=== PATIENT | female | born 1990 | race Caucasian/White ===

== ENCOUNTER 2016-04-22 14:48 | Emergency (ER) | payer SELFPAY ==
[~2016-04-22] VITALS: Ht 162.6 cm; Wt 72.6 kg
[~2016-04-22 14:48] MED LIST: ACYC200C PO; ALBUTERAL INHALER; AMOX500C2 PO; AMOX500T2 PO; CEPH-507 PO; Ibuprofen PO; METR70GE8 VG; NAPR-243 PO; NITR-65 PO; NITR100C3 PO; ONDA4TAB8 PO; ONDAN4ODT SL; PREN-115 PO; RT-ALBUINH IH; SERT25TA PO; TRAM50TA2 PO; [UNRECOGNIZED DRUG - CODE] PO
--- OUTSIDE RECORDS SUMMARY | 2016-04-22 14:54 | XMS REPORT | Continuity of Care Document ---
Author Author [facility] Organization [facility] Address Unknown Phone Unavailable Care Team Providers Care Housing Project Manager Name Role Phone NO, LOCAL PHYSICIAN PCP Unavailable Insurance Providers Payer Name Policy Number Subscriber Name Relationship Self Pay Amanda Gomez 19 Self / Same As Patient Advance Directives Directive Response Recorded Date/Time Advance Directives No 09/18/14 6:42pm Health Care Power of Public Safety Dispatcher No 09/18/14 6:42pm Organ Donor No 09/18/14 6:42pm Resuscitation Status Full Code 09/18/14 6:42pm Problems Medical Problems Problem Onset Date Status Diarrhea Unknown Active Nausea and vomiting Unknown Active test positive Unknown Active Urinary tract infection in Unknown Active Dental caries Unknown Active Depression Unknown Active Gardnerella Urinary Tract Infection Unknown Active Upper respiratory infection Unknown Active Nausea and vomiting Unknown Active bacteriuria Unknown Active Abrasion Unknown Active Herpes simplex Unknown Active Dental abscess Unknown Active Medications Medication Dose Route Sig Days/Qty Instructions Order Date Discontinued Date Status Vit #108/Iron/Fa 1 Each PO DAILY 02/24/13 09/18/14 Discontinued Nitrofurantoin Macrocrystals 1 Cap PO TWICE A DAY 7 Days Clcr <60 mL/ minute: Contraindicated 02/24/13 03/20/13 Discontinued Ondansetron HCl 4 Mg SL EVERY 4HRS PRN NAUSEA/VOMITING 20 Qty 02/24/13 03/20/13 Discontinued Amoxicillin 2 Each PO TWICE A DAY 10 Days 03/20/13 05/12/13 Discontinued Metronidazole 70 Gm VG DIRECTED 5 Days Sure one applicator full vaginally at night before bedtime 03/20/13 05/12/13 Discontinued Ondansetron 4 Mg PO 05/12/13 10/07/13 Discontinued Nitrofurantoin Macrocrystals 1 Each PO TWICE A DAY 20 Qty 05/12/13 Discontinued Sertraline HCl 25 Mg PO 10/07/13 09/18/14 Discontinued [Ibuprofen] 600 Mg PO EVERY 6 HOURS PRN PAIN 90 Qty 11/07/13 09/18/14 Discontinued [Albuteral Inhaler] NEEDED 09/18/14 Active Acyclovir 400 Mg PO THREE TIMES A DAY 60 Qty 09/18/14 Active Naproxen 1 Each PO BID PRN PRN PAIN 20 Qty 09/18/14 Active Amoxicillin Trihydrate 500 Mg PO FOUR TIMES DAILY 40 Qty 09/18/14 Active Social History Social History Problem Response Recorded Date/Time Alcohol Use Occasionally Uses 09/18/2014 6:42pm Recreational Drug Use No 09/18/2014 6:42pm Recent Foreign Travel No 11/04/2013 6:40pm Recent Infectious Disease Exposure No 11/04/2013 6:40pm Hospitalization with Isolation Denies 11/07/2013 3:30pm Sexually Transmitted Disease No 09/18/2014 6:42pm HIV/AIDS No 09/18/2014 6:42pm Smoking Status Current Everyday Smoker 09/18/2014 6:42pm Query Response Start Date Stop Date Smoking Status Current Everyday Smoker Hospital Discharge Instructions No hospital discharge instructions. Plan of Care No plan of care. Functional Status No functional status results. Allergies, Adverse Reactions, Alerts Allergen Type Severity Reaction Status Last Updated No Known Drug Allergies Active 02/24/13 Immunizations Name Given Type Hepatitis A No Historical Hepatitis B No Historical Tetanus Booster (TDap) Less than 5yrs Historical Vital Signs Acute Vital Signs Vital Response Date/Time Temperature (Fahrenheit) 97.8 degrees F (97.6 - 99.5) Temperature (Calculated Celsius) 36.42534 degrees C (36.4 - 37.5) Temperature Source Temporal Pulse Rate (adult) 70 bpm (60 - 90) Respiratory Rate 18 bpm (12 - 24) O2 Sat by Pulse Oximetry 98 % (88 - 100) Blood Pressure 116/80 mm Hg Blood Pressure Mean 98 mm Hg Pain Pain Intensity 4 Height (Feet) 5 feet Height (Inches) 5.00 inches Height (Calculated Centimeters) 165.321785 cm Weight (Pounds) 150 pounds Weight (Calculated Grams) 02858.627 gm Weight (Calculated Kilograms) 68.612142 kilograms Calculated BMI 21.09 Results No known relevant diagnostic tests, laboratory data and/or discharge summary. Procedures No known history of procedures. Encounters Encounter Location Date/Time Departed Emergency Room [facility] 09/18/14 6:24pm Recent Diagnosis
[2016-04-22] MEDS ORDERED: HYDR-3812 PO (15:39)
[2016-04-22] MEDS ORDERED: AMOX250C PO (15:39)
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
[2016-04-22] MEDS ORDERED: PRED5TAB PO (16:07)
[2016-04-22 16:11] VITALS: BP 114/59
== END 2016-04-22 16:11 | disposition home or self-care (01) ==
LOC: EDUNIT# 14:48 → ER 14:50
DX: K04.7 Periapical abscess without sinus (principal)
CPT/HCPCS: 99282

== ENCOUNTER 2016-05-18 17:33 | Emergency (ER) | payer SELFPAY ==
[~2016-05-18] VITALS: Ht 162.6 cm; Wt 77.1 kg
[~2016-05-18 17:33] MED LIST changes: +AMOX250C PO; +HYDR-3812 PO; +PRED5TAB PO
--- OUTSIDE RECORDS SUMMARY | 2016-05-18 17:38 | XMS REPORT | Continuity of Care Document ---
Author Author [facility] Organization [facility] Address Unknown Phone Unavailable Care Team Providers Care Home Visitor Home Base Head Start Name Role Phone NO, LOCAL PHYSICIAN PCP Unavailable Insurance Providers Payer Name Policy Number Subscriber Name Relationship Self Pay Amanda Gomez 19 Self / Same As Patient Advance Directives Directive Response Recorded Date/Time Advance Directives No 09/18/14 6:42pm Health Care Power of Casualty Claims Supervisor No 09/18/14 6:42pm Organ Donor No 09/18/14 [...] F (97.6 - 99.5) Temperature (Calculated Celsius) 36.07677 degrees C (36.4 - 37.5) Temperature Source Temporal Pulse Rate (adult) 70 bpm (60 - 90) Respiratory Rate 18 bpm (12 - 24) O2 Sat by Pulse Oximetry 98 % (88 - 100) Blood Pressure 116/80 mm Hg Blood Pressure Mean 98 mm Hg Pain Pain Intensity 4 Height (Feet) 5 feet Height (Inches) 5.00 inches Height (Calculated Centimeters) 165.611259 cm Weight (Pounds) 150 pounds Weight (Calculated Grams) 06066.627 gm Weight (Calculated Kilograms) 68.965411 kilograms Calculated BMI 21.09 Results No known relevant diagnostic tests, laboratory data and/or discharge summary. Procedures No known history of procedures. Encounters Encounter Location Date/Time Departed Emergency Room [facility] 09/18/14 6:24pm Recent Diagnosis
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
[2016-05-18] MEDS ORDERED: NS IV 1000 ML 1,000 ML IV SCH (18:00)
[2016-05-18] MEDS ORDERED: HYOSCYAMINE 0.125 MG (LEVSIN) TAB PO ONE (18:00)
[2016-05-18 18:18] LABS: BASOPHILS % (AUTO) 0 % (0-10); EOSINOPHILS # (AUTO) 0.1 10^3/uL (0.0-0.3); EOSINOPHILS % (AUTO) 1 % (0-10); LYMPHOCYTES # (AUTO) 0.9 X 10^3 (1.0-4.0); LYMPHOCYTES % (AUTO) 8 % (12-44); MEAN CORPUSCULAR HEMOGLOBIN 33 PG (25-34); MEAN CORPUSCULAR HGB CONC 34 G/DL (32-36); MEAN CORPUSCULAR VOLUME 95 FL (80-99); MEAN PLATELET VOLUME 11.5 FL (7.4-10.4); MONOCYTES # (AUTO) 0.5 X 10^3 (0.0-1.0); MONOCYTES % (AUTO) 4 % (0-12); NEUTROPHILS # (AUTO) 9.5 X 10^3 (1.8-7.8); NEUTROPHILS % (AUTO) 87 % (42-75); PLATELET COUNT 148 10^3/uL (130-400); RED BLOOD COUNT 4.89 10^6/uL (4.35-5.85); RED CELL DISTRIBUTION WIDTH 12.8 % (10.0-14.5)
[2016-05-18 18:34] LABS: BAND NEUTROPHILS 5 %; BASOPHILS % (MANUAL) 0 %; EOSINOPHILS % (MANUAL) 1 %; LYMPHOCYTES % (MANUAL) 7 %; NEUTROPHILS % (MANUAL) 82 %
[2016-05-18 18:42] LABS: ALANINE AMINOTRANSFERASE 30 U/L (0-55); ALBUMIN 4.5 G/DL (3.2-4.5); ANION GAP 9 MMOL/L (5-14); ASPARTATE AMINO TRANSFERASE 26 U/L (5-34); BILIRUBIN,TOTAL 0.7 MG/DL (0.1-1.0); BLOOD UREA NITROGEN 10 MG/DL (7-18); BUN/CREATININE RATIO 13; CALCIUM 9.4 MG/DL (8.5-10.1); CARBON DIOXIDE 23 MMOL/L (21-32); CHLORIDE 106 MMOL/L (98-107); CREATININE SERUM 0.76 MG/DL (0.60-1.30); GFR ESTIMATED > 60; GLUCOSE 108 MG/DL (70-105); LIPASE 14 U/L (8-78); POTASSIUM 4.5 MMOL/L (3.6-5.0); SODIUM 138 MMOL/L (135-145); TOTAL PROTEIN 7.6 G/DL (6.4-8.2)
[2016-05-18] MEDS ORDERED: ONDA8TAB9 PO (19:21)
[2016-05-18] MEDS ORDERED: HYOS0.1283 SL (19:21)
[2016-05-18 19:52] LABS: BILIRUBIN,URINE NEGATIVE (NEGATIVE); KETONES,URINE NEGATIVE (NEGATIVE); LEUKOCYTE ESTERASE ,URINE 2+ (NEGATIVE); NITRITE,URINE NEGATIVE (NEGATIVE); PH,URINE 5 (5-9); PROTEIN,URINE 2+ (NEGATIVE); SQUAMOUS EPITHELIAL CELL,UR 25-50 /HPF; UROBILINOGEN,URINE NORMAL (NORMAL)
[2016-05-18] MEDS ORDERED: SULF1TAB35 PO (19:56)
[2016-05-18 20:10] VITALS: BP 135/84
== END 2016-05-18 20:10 | disposition home or self-care (01) ==
LOC: EDUNIT# 17:33 → ER 17:35
DX: R11.2 Nausea with vomiting, unspecified (principal); R19.7 Diarrhea, unspecified; N39.0 Urinary tract infection, site not specified
CPT/HCPCS: 36415; 80053; 81000; 83690; 84703; 85007; 85027; 87088; 96360

== ENCOUNTER 2016-08-20 19:07 | Emergency (ER) | payer SELFPAY ==
[~2016-08-20] VITALS: Ht 162.6 cm; Wt 72.6 kg
[~2016-08-20 19:07] MED LIST changes: +HYOS0.1283 SL; +ONDA8TAB9 PO; +SULF1TAB35 PO
[2016-08-20] MEDS ORDERED: LACTATED RINGERS 1,000 ML IV ONE (19:59)
[2016-08-20 20:21] LABS: BASOPHILS # (AUTO) 0.1 10^3/uL (0.0-0.1); BASOPHILS % (AUTO) 1 % (0-10); EOSINOPHILS # (AUTO) 0.1 10^3/uL (0.0-0.3); EOSINOPHILS % (AUTO) 1 % (0-10); LYMPHOCYTES # (AUTO) 2.1 X 10^3 (1.0-4.0); LYMPHOCYTES % (AUTO) 21 % (12-44); MEAN CORPUSCULAR HEMOGLOBIN 33 PG (25-34); MEAN CORPUSCULAR HGB CONC 35 G/DL (32-36); MEAN CORPUSCULAR VOLUME 94 FL (80-99); MEAN PLATELET VOLUME 11.3 FL (7.4-10.4); MONOCYTES # (AUTO) 0.8 X 10^3 (0.0-1.0); MONOCYTES % (AUTO) 8 % (0-12); NEUTROPHILS # (AUTO) 7.2 X 10^3 (1.8-7.8); NEUTROPHILS % (AUTO) 70 % (42-75); PLATELET COUNT 180 10^3/uL (130-400); RED BLOOD COUNT 4.46 10^6/uL (4.35-5.85); RED CELL DISTRIBUTION WIDTH 13.3 % (10.0-14.5); WHITE BLOOD COUNT 10.3 10^3/uL (4.3-11.0)
[2016-08-20 20:35] LABS: ALCOHOL 106 MG/DL (<10); ANION GAP 12 MMOL/L (5-14); BLOOD UREA NITROGEN 5 MG/DL (7-18); BUN/CREATININE RATIO 7; CALCIUM 9.3 MG/DL (8.5-10.1); CARBON DIOXIDE 22 MMOL/L (21-32); CHLORIDE 105 MMOL/L (98-107); CREATININE SERUM 0.69 MG/DL (0.60-1.30); GFR ESTIMATED > 60; GLUCOSE 89 MG/DL (70-105); POTASSIUM 3.4 MMOL/L (3.6-5.0); SODIUM 139 MMOL/L (135-145)
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
[2016-08-20 20:55] LABS: BILIRUBIN,URINE NEGATIVE (NEGATIVE); KETONES,URINE NEGATIVE (NEGATIVE); LEUKOCYTE ESTERASE ,URINE NEGATIVE (NEGATIVE); NITRITE,URINE NEGATIVE (NEGATIVE); PH,URINE 7 (5-9); PROTEIN,URINE NEGATIVE (NEGATIVE); UROBILINOGEN,URINE NORMAL (NORMAL)
[2016-08-20 21:04] LABS: WBC,URINE 0-2 /HPF
[2016-08-20] MEDS ORDERED: ONDA4TAB8 PO (21:15)
[2016-08-20 22:08] VITALS: BP 126/84
== END 2016-08-20 22:08 | disposition home or self-care (01) ==
LOC: EDUNIT# 19:07 → ER 19:10
DX: O03.9 Complete or unspecified spontaneous abortion without complication (principal); F17.290 Nicotine dependence, other tobacco product, uncomplicated; Z3A.09 9 weeks gestation of pregnancy
CPT/HCPCS: 36415; 80048; 80306; 80320; 81000; 84702; 84703; 85025

== ENCOUNTER 2016-10-08 15:34 | Emergency (ER) | payer MEDICAID ==
[~2016-10-08] VITALS: Ht 160 cm; Wt 72.6 kg
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
[2016-10-08 17:44] LABS: BASOPHILS % (AUTO) 0 % (0-10); EOSINOPHILS # (AUTO) 0.1 10^3/uL (0.0-0.3); EOSINOPHILS % (AUTO) 1 % (0-10); LYMPHOCYTES # (AUTO) 2.1 X 10^3 (1.0-4.0); LYMPHOCYTES % (AUTO) 22 % (12-44); MEAN CORPUSCULAR HEMOGLOBIN 33 PG (25-34); MEAN CORPUSCULAR HGB CONC 34 G/DL (32-36); MEAN CORPUSCULAR VOLUME 96 FL (80-99); MEAN PLATELET VOLUME 11.4 FL (7.4-10.4); MONOCYTES # (AUTO) 0.7 X 10^3 (0.0-1.0); MONOCYTES % (AUTO) 7 % (0-12); NEUTROPHILS # (AUTO) 6.7 X 10^3 (1.8-7.8); NEUTROPHILS % (AUTO) 70 % (42-75); PLATELET COUNT 194 10^3/uL (130-400); RED BLOOD COUNT 4.87 10^6/uL (4.35-5.85); RED CELL DISTRIBUTION WIDTH 13.6 % (10.0-14.5); WHITE BLOOD COUNT 9.6 10^3/uL (4.3-11.0)
--- NOTE | 2016-10-08 18:53 | Diagnostic Imaging Report ---
INDICATION: with bleeding. FINDINGS: There does appear to be an intrauterine gestational sac measuring 3 cm which would be consistent with 8 week 3 day gestation. There is no evidence of pole or yolk sac, however. The right ovary is visualized and appears normal with a few follicular cysts. The left ovary is not demonstrated. No adnexal masses are seen. There is no free fluid. IMPRESSION: Findings are consistent with blighted ovum as described. No evidence of pole or yolk sac demonstrated within the gestational sac in the uterine cavity. Dictated by: Dictated on workstation # [id number]
[2016-10-08 19:03] VITALS: BP 135/75
== END 2016-10-08 19:03 | disposition home or self-care (01) ==
LOC: EDUNIT# 15:34 → ER 15:36
DX: O02.0 Blighted ovum and nonhydatidiform mole (principal); O99.341 Other mental disorders complicating pregnancy, first trimester; F31.9 Bipolar disorder, unspecified; O99.89 Other specified diseases and conditions complicating pregnancy, childbirth and the puerperium; M79.5 Residual foreign body in soft tissue; O99.511 Diseases of the respiratory system complicating pregnancy, first trimester; J45.909 Unspecified asthma, uncomplicated; O99.321 Drug use complicating pregnancy, first trimester; F12.90 Cannabis use, unspecified, uncomplicated; O99.331 Smoking (tobacco) complicating pregnancy, first trimester; F17.290 Nicotine dependence, other tobacco product, uncomplicated; Z87.39 Personal history of other diseases of the musculoskeletal system and connective tissue; Z98.890 Other specified postprocedural states; Z3A.00 Weeks of gestation of pregnancy not specified
CPT/HCPCS: 36415; 76801; 76817; 84702; 85025; 99282

== ENCOUNTER 2016-11-24 20:14 | Emergency (ER) | payer MEDICAID, OTHER ==
[~2016-11-24] VITALS: Ht 160 cm; Wt 72.6 kg
[2016-11-24] MEDS ORDERED: AMOXICILLIN 500 MG (POLYMOX) CAP PO STA (20:27)
[2016-11-24] MEDS ORDERED: NAPROXEN 250 MG (NAPROSYN) TABLET PO ONE (20:30)
[2016-11-24] MEDS ORDERED: HYDROcodone/APAP 5 MG/325 MG (LORTAB) TAB PO ONE (20:30)
--- NOTE | 2016-11-24 20:31 | ED EENT ---
History of Present Illness General Chief Complaint: Dental Problems/Pain Stated Complaint: TOOTH PAIN Source: patient Exam Limitations: no limitations History of Present Illness Time seen by provider: 20:29 Initial Comments To ER with left upper and lower dental pain for 2 days. States that she took an "fish antibiotic" earlier today. She does not have a dentist. Timing/Duration: abrupt Severity: moderate Location: dental Associated Symptoms: denies symptoms Allergies and Home Medications Allergies Coded Allergies: No Known Drug Allergies (Unverified , 02/24/13) Home Medications Hyoscyamine Sulfate 0.125 Mg Tab.subl, 0.125 MG SL Q4H PRN for PAIN, #10 Prescribed by: HASMUKH DUKE on 05/18/161920 Ondansetron 8 Mg Tab.rapdis, 8 MG PO Q6H PRN for NAUSEA/VOMITING, #10 Prescribed by: HASMUKH DUKE on 05/18/161920 Ondansetron 4 Mg Tab.rapdis, 4 MG PO Q6H PRN for NAUSEA/VOMITING-1ST LINE, #20 Ref 0 Prescribed by: TOPHER CLAIRE on 08/20/162114 Sulfamethoxazole/Trimethoprim 1 Each Tablet, 1 EACH PO BID, #10 Prescribed by: HASMUKH DUKE on 05/18/161955 Review of Systems Constitutional: see HPI Eyes: No Symptoms Reported Ears: No Symptoms Reported Nose: no symptoms reported Mouth: see HPI Throat: no symptoms reported Respiratory: no symptoms reported Past Wrpjhto-Lqnorf-Ugkvrd Hx Patient Social History Alcohol Beverage of Choice: Whiskey, Other Drug of Choice: MARIJUANA Type Used: Cigars 2nd Hand Smoke Exposure: Yes Recent Foreign Travel: No Contact w/Someone Who Travel: No Recent Hopitalizations: No Immunizations Up To Date Tetanus Booster (TDap): Unknown Seasonal Allergies Seasonal Allergies: No Surgeries History of Surgeries: Yes (R-EYE SURGERY, RECONSTRUCTIVE) Surgeries: Eye Surgery Respiratory History of Respiratory Disorde: Yes (USED INHALER 3 MONTHS AGO) Respiratory Disorders: Asthma Cardiovascular History of Cardiac Disorders: No Neurological History of Neurological Disord: No Reproductive System Hx Reproductive Disorders: No Sexually Transmitted Disease: No HIV/AIDS: No Female 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 Genitourinary History of Genitourinary Disor: No Gastrointestinal History of Gastrointestinal Di: No Musculoskeletal History of Musculoskeletal Dis: No Musculoskeletal Disorders: Fractures Endocrine History of Endocrine Disorders: No HEENT History of HEENT Disorders: No Loss of Vision: Denies Hearing Impairment: Denies Cancer History of Cancer: No Psychosocial History of Psychiatric Problem: Yes (DOESNT TAKE ANY MEDS) Behavioral Health Disorders: Bipolar, Depression Integumentary History of Skin or Integumenta: No Skin/Integumentary Disorders: Herpes Blood Transfusions History of Blood Disorders: No Adverse Reaction to a Blood Tr: No Family Medical History Significant Family History: No Pertinent Family Hx Family Medial History: Asthma 19 MOTHER G8 SISTER Cervical cancer No Family History of: AIDS Abdominal aortic aneurysm Makanda's disease Alcoholism Alzheimer's disease Aphasia Arthritis Cardiovascular disease Cataracts Colon cancer Completed stroke Congenital disease Congenital heart disease Coronary thrombosis Cystic fibrosis Deafness or hearing loss Dementia Diabetes mellitus Drug abuse Dysphasia Fibrocystic disease of breast Gastroenteritis Glaucoma Headache disorder Hypercholesterolemia Hypertension Infertility Kidney disease Myocardial infarction Neoplasm Not obtainable due to adoption Osteoporosis Parkinson's disease Prostate cancer Psychosocial problem Respiratory disorder Seizure disorder Severe allergy Thyroid disease Tuberculosis Visual disorder Physical Exam General Appearance: WD/WN, no apparent distress, other (patient has a rather unusual appearance. Her hair is dyed purple and there is purple stain on her shoulders that has run off of her scalp. Her eye shadow and eyeliner is run down her cheeks. She has multiple sores in various stages of healing on upper and lower extremities. Multiple carious and eroded teeth. She has a bottle of [employer] vodka sitting in her purse.) Eyes: bilateral eye normal inspection, bilateral eye PERRL, bilateral eye EOMI Ears: bilateral ear auricle normal, bilateral ear canal normal, bilateral ear TM normal Mouth/Throat: pharynx normal, other (multiple carious and fractured teeth upper and lower both sides. No fluctuance or drainable abscess.) Progress/Results/Core Measures Results/Orders My Orders Orders - HASMUKH DUKE APRN Hydrocodone/Apap 5/325 Tablet (Lortab 5 (11/24/16 20:30) Amoxicillin Capsule (Polymox Capsule) (11/24/16 20:27) Naproxen Tablet (Naprosyn Tablet) (11/24/16 20:30) Departure Impression Impression: Primary Impression: Dental caries Disposition: 01 HOME, SELF-CARE Condition: Stable Departure-Patient Inst. Decision time for Depature: 20:31 Referrals: NO,LOCAL PHYSICIAN (PCP/Family) Primary Care Physician Patient Instructions: Dental Pain (DC) Add. Discharge Instructions: 1. REturn to ER for any concerns 2. Follow up with [facility] [address] 3. Antibiotics as directed All discharge instructions reviewed with patient and/or family. Voiced understanding. Scripts Ketoprofen (Ketoprofen) 50 Mg Capsule 50 MG PO Q6H, #14 CAP Prov: HASMUKH DUKE PHYSICAL THERAPIST TECHNICIAN 11/24/16 Amoxicillin (Amoxicillin) 500 Mg Capsule 500 MG PO TID, #21 CAP Prov: HASMUKH DUKE PHYSICAL THERAPIST TECHNICIAN 11/24/16 HASMUKH DUKE PHYSICAL THERAPIST TECHNICIAN Nov 24, 2016 20:31
[2016-11-24] MEDS ORDERED: AMOX500C2 PO (20:33)
[2016-11-24] MEDS ORDERED: KETO50CA PO (20:33)
[2016-11-24 20:45] VITALS: BP 150/98
== END 2016-11-24 20:45 | disposition home or self-care (01) ==
LOC: EDUNIT# 20:14 → ER 20:16
DX: K02.9 Dental caries, unspecified (principal); F31.9 Bipolar disorder, unspecified; F32.9 Major depressive disorder, single episode, unspecified; J45.909 Unspecified asthma, uncomplicated; Z80.49 Family history of malignant neoplasm of other genital organs; Z87.2 Personal history of diseases of the skin and subcutaneous tissue; Z87.81 Personal history of (healed) traumatic fracture; Z97.5 Presence of (intrauterine) contraceptive device; Z77.22 Contact with and (suspected) exposure to environmental tobacco smoke (acute) (chronic)
CPT/HCPCS: 99283

== ENCOUNTER 2018-11-21 18:11 | Emergency (ER) | payer SELFPAY ==
[~2018-11-21] VITALS: Ht 162.6 cm; Wt 68.0 kg
[~2018-11-21 18:11] MED LIST changes: +ACHD5005 PO; -HYDR-3812 PO; +KETO50CA PO
--- NOTE | 2018-11-21 18:21 | ED EENT ---
History of Present Illness General Stated Complaint: RT SIDE OF FACE INFECTION Source: patient History of Present Illness Date Seen by Provider: Nov 21, 2018 Time Seen by Provider: 18:21 Initial Comments 28-year-old female presenting with complaints of swelling and pain to her right side of her face. She was seen in urgent care for this same pain earlier today and diagnosed with having an abscess. She was started on clindamycin and given a shot. She has had improvement in the it was more swollen earlier today. She had been in the process of trying to get ready and put on some makeup when she had pressed against the wound and caused it to open and start draining. She reports having a lot of pus some blood coming from the wound. This did relieve some pressure from the wound but also cause some pain. She felt like a core had come out. She has continued pain especially with palpation of the area. There is no current purulence draining from the wound. 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 Allergies and Home Medications Allergies Coded Allergies: No Known Drug Allergies (Unverified , 02/24/13) Home Medications Amoxicillin 500 Mg Capsule, 500 MG PO TID Prescribed by: HASMUKH DUKE on 11/24/162032 Hyoscyamine Sulfate 0.125 Mg Tab.subl, 0.125 MG SL Q4H PRN for PAIN Prescribed by: HASMUKH DUKE on 05/18/161920 Ibuprofen 800 Mg Tablet, 800 MG PO Q8H PRN for PAIN Prescribed by: PHAN LEONYART on 11/21/181857 Ketoprofen 50 Mg Capsule, 50 MG PO Q6H Prescribed by: HASMUKH DUKE on 11/24/162032 Mupirocin 22 Gm Oint...g., 0.5 GM TP UD Apply a thin layer to abscess/wound twice a day for 10 days Prescribed by: PHAN Pineda ENYART on 11/21/181857 Ondansetron 8 Mg Tab.rapdis, 8 MG PO Q6H PRN for NAUSEA/VOMITING Prescribed by: HASMUKH DUKE on 05/18/161920 Ondansetron 4 Mg Tab.rapdis, 4 MG PO Q6H PRN for NAUSEA/VOMITING-1ST LINE Prescribed by: TOPHER CLAIRE on 08/20/162114 Sulfamethoxazole/Trimethoprim 1 Each Tablet, 1 EACH PO BID Prescribed by: HASMUKH DUKE on 05/18/161955 Tramadol HCl 50 Mg Tablet, 50 MG PO Q6H PRN for PAIN Prescribed by: PHAN BUENO on 11/21/18 185 Patient Home Medication List Home Medication List Reviewed: Yes Review of Systems Review of Systems Constitutional: No chills, No fever; other (swelling with redness and pain to the right mandible area. There has been some serosanguineous drainage from this area.) Eyes: Denies Blurred Vision, Denies Previous Injury Ears: Denies Bloody Discharge, Denies Clear Discharge Nose: denies bloody discharge Mouth: denies clots, denies swelling, denies bloody discharge, denies purulent discharge Throat: denies pain Respiratory: no symptoms reported Cardiovascular: no symptoms reported Gastrointestinal: no symptoms reported Musculoskeletal: no symptoms reported Skin: no symptoms reported Neurological: No Symptoms Reported Past Ukbsbqg-Bjnfci-Kwkqhd Hx Past Med/Social Hx: Reviewed Nursing Past Med/Soc Hx Patient Social History Alcohol Use: Denies Use Alcohol Beverage of Choice: Whiskey, Other Drug of Choice: MARIJUANA Type Used: Cigars, Cigarettes 2nd Hand Smoke Exposure: Yes Recent Foreign Travel: No Contact w/Someone Who Travel: No Recent Hopitalizations: No Immunizations Up To Date Tetanus Booster (TDap): Unknown Seasonal Allergies Seasonal Allergies: No Past Medical History Surgeries: Yes (R-EYE SURGERY, RECONSTRUCTIVE) Eye Surgery Respiratory: Yes (TOBACCOISM) Asthma Cardiac: No Neurological: No Reproductive Disorders: No Female Reproductive Disorders: Denies [employer] History: IUD Sexually Transmitted Disease: No HIV/AIDS: No Genitourinary: No Gastrointestinal: No Musculoskeletal: No Fractures Endocrine: No HEENT: No Loss of Vision: Denies Hearing Impairment: Denies Cancer: No Psychosocial: Yes (DENIES MEDS) Bipolar, Depression Integumentary: No Herpes Blood Disorders: No Adverse Reaction/Blood Tranf: No Family Medical History Asthma 19 MOTHER G8 SISTER Cervical cancer No Family History of: AIDS Abdominal aortic aneurysm [place]'s disease Alcoholism Alzheimer's disease Aphasia Arthritis Cardiovascular disease Cataracts Colon cancer Completed stroke Congenital disease Congenital heart disease Coronary thrombosis Cystic fibrosis Deafness or hearing loss Dementia Diabetes mellitus Drug abuse Dysphasia Fibrocystic disease of breast Gastroenteritis Glaucoma Headache disorder Hypercholesterolemia Hypertension Infertility Kidney disease Myocardial infarction Neoplasm Not obtainable due to adoption Osteoporosis Parkinson's disease Prostate cancer Psychosocial problem Respiratory disorder Seizure disorder Severe allergy Thyroid disease Tuberculosis Visual disorder No Pertinent Family Hx Physical Exam Vital Signs Vital Signs - First Documented 11/21/18 18:17 Temp 36.7 Pulse 78 Resp 16 B/P (MAP) 113/80 (91) Pulse Ox 98 O2 Delivery Room Air Height, Weight, BMI Height: 5'3.00" Weight: 160lbs. 0oz. 72.040642tp; 26.79 BMI Method:Stated General Appearance: WD/WN, no apparent distress Eyes: bilateral eye PERRL, bilateral eye EOMI Ears: bilateral ear auricle normal, bilateral ear canal normal, bilateral ear TM normal Nose: normal inspection, active bleeding Mouth/Throat: pharynx normal Neck: non-tender, full range of motion, supple, normal inspection Cardiovascular: normal peripheral pulses, regular rate, rhythm Respiratory: chest non-tender, lungs clear Skin: normal color, warm/dry, other (erythematous indurated tender area on her right mandible with scant amount of serosanguineous drainage present.) Progress/Results/Core Measures Results/Orders My Orders Orders - PHAN BUENO MD Wound Culture (11/21/18 18:44) Ibuprofen Tablet (Motrin Tablet) (11/21/18 18:44) Tramadol Tablet (Ultram Tablet) (11/21/18 18:44) Wound Dressing-Ed (11/21/18 18:44) Vital Signs/I&O 11/21/18 11/21/18 18:17 19:04 Temp 36.7 36.7 Pulse 78 78 Resp 16 16 B/P (MAP) 113/80 (91) 113/80 (91) Pulse Ox 98 98 O2 Delivery Room Air Progress Progress Note : Progress Note Since she is already on antibiotics will obtain culture of the scant amount of drainage from her wound and give her the Toradol shot here for pain as well as prescribed tramadol in the addition to anti-inflammatories. Departure Impression Primary Impression: Cutaneous abscess of face Disposition: 01 HOME, SELF-CARE Condition: Stable Departure-Patient Inst. Decision time for Depature: 18:46 Referrals: NO,LOCAL PHYSICIAN (PCP/Family) Primary Care Physician Patient Instructions: ABSCESS, MRSA (DC) Add. Discharge Instructions: Keep wound clean with soap and water. Apply antibiotic ointment 2 times a day and keep covered May apply heat 10-15 minutes every few hours as needed to help the area drain and get more of the antibiotic to the area to help it heal and fight the i nfection Keep your head elevated when sleeping to help limit the swelling and throbbing Follow up with clinic for continued concerns Take the antibiotics until gone Scripts Mupirocin (Mupirocin) 22 Gm Oint...g. 0.5 GM TP UD for abscess for 10 Days, #22 GM 0 Refills Apply a thin layer to abscess/wound twice a day for 10 days Prov: PHAN BUENO MD 11/21/18 Tramadol HCl (Tramadol HCl) 50 Mg Tablet 50 MG PO Q6H PRN for PAIN for 3 Days, #12 TAB 0 Refills Prov: PHAN BUENO MD 11/21/18 Ibuprofen (Ibuprofen) 800 Mg Tablet 800 MG PO Q8H PRN for PAIN for 10 Days, #30 TAB 0 Refills Prov: PHAN BUENO MD 11/21/18 PHAN BUENO MD Nov 21, 2018 18:21
[2018-11-21] MEDS ORDERED: TRAM50TA2 PO (18:58)
[2018-11-21] MEDS ORDERED: MUPI22OI2 TP (18:58)
[2018-11-21] MEDS ORDERED: IBUP-1780 PO (18:58)
[2018-11-21] MEDS: IBUPROFEN 800 MG (MOTRIN) TAB PO STA (19:00)
[2018-11-21 19:04] VITALS: BP 113/80
== END 2018-11-21 19:13 | disposition home or self-care (01) ==
LOC: EDUNIT# 18:11 → ER FS 18:13
DX: L02.01 Cutaneous abscess of face (principal); J45.909 Unspecified asthma, uncomplicated; F31.9 Bipolar disorder, unspecified; Z77.22 Contact with and (suspected) exposure to environmental tobacco smoke (acute) (chronic); Z80.8 Family history of malignant neoplasm of other organs or systems
CPT/HCPCS: 87070; 87077; 87186; 87205; 99283